=== PATIENT | male | born 1980 | race Caucasian/White ===

== ENCOUNTER 2017-02-03 10:02 | Emergency (ER) | payer OTHER ==
[2017-02-03] MEDS ORDERED: oxyCODONE/Acetamin 5/325 MG* TAB ONE (11:48)
[2017-02-03] MEDS ORDERED: oxyCODONE/Acetamin 5/325 MG* TAB PO ONE ×2 (11:49→11:56)
--- NOTE | 2017-02-03 12:24 | RAD ---
HISTORY: Left testicle pain COMPARISONS: None TECHNIQUE: Multiple transverse and longitudinal ultrasound images were obtained of the scrotum, using grayscale, color Doppler, and spectral Doppler imaging. FINDINGS: RIGHT: RIGHT TESTICLE: The right testicle measures 4.8 x 2.6 x 3.6 cm. The right testicle is homogeneous in echotexture, without testicular parenchymal mass. A punctate calculus is noted without meeting the criteria for testicular microlithiasis.. Normal arterial and venous waveforms are identified within the right testicle on spectral Doppler imaging. RIGHT EPIDIDYMIS: The right epididymis measures 1.7 cm at the head. A 0.4 cm cyst is noted. RIGHT SCROTUM: There is no hydrocele or varicocele. LEFT: LEFT TESTICLE: The left testicle measures 5 x 2.5 x 3.4 cm. The left testicle is homogeneous in echotexture, without testicular parenchymal mass. Normal arterial and venous waveforms are identified within the left testicle on spectral Doppler imaging. LEFT EPIDIDYMIS: The left epididymis measures 2.1 cm at the head. The left epididymis is mildly hyperemic. LEFT SCROTUM: There is no hydrocele or varicocele. OTHER: None IMPRESSION: 1. MILDLY HYPEREMIC LEFT EPIDIDYMIS, SUGGESTIVE OF EPIDIDYMITIS. 2. NO TESTICULAR PARENCHYMAL MASS. 3. NO SONOGRAPHIC FEATURES OF TORSION. PLEASE NOTE THAT PARTIAL OR INTERMITTENT TORSION MAY BE SONOGRAPHICALLY NORMAL.
[2017-02-03 12:40] VITALS: BP 109/78
--- NOTE | 2017-02-03 14:13 | ED ---
I, Charly,Jr, scribed for Barry Marroquin MD on 02/03/17 at 1146 . GI/ HPI - HPI Summary HPI Summary: This 36 y/o male presents to ED for gradually worsening left testicular swelling and pain since 1400 PM yesterday. Negative discharge. Normal BM and urination. Ambulating and sitting down make pain worse. Pt denies any PMHx. Pt is current some day smoker. Plan of care involving US imaging studies is discussed with pt , and he is agreeable. Pain medication is offered, and pt accepts. - History of Current Complaint Chief Complaint: EDUrogenitalProblems Time Seen by Provider: 02/03/17 10:18 Stated Complaint: testicular PAIN Hx Obtained From: Patient Onset/Duration: Started Days Ago, Atraumatic, Still Present Timing: Constant Pain Intensity: 6 Additional Locations for Males: Testicles - left Pain Characteristics: Dull Associated Signs and Symptoms: Negative: Diarrhea, Dysuria - Allergy/Home Medications Allergies/Adverse Reactions: Allergies Allergy/AdvReac Type Severity Reaction Status Date / Time No Known Allergies Allergy Verified 02/03/17 10:33 PMH/Surg Hx/FS Hx/Imm Hx Cardiovascular History: Denies: Hx Myocardial Infarction Infectious Disease History: No Infectious Disease History: Denies: Traveled Outside the [place] in Last 30 Days - Family History Known Family History: Positive: Hypertension - Positive to father - Social History Alcohol Use: Weekly Hx Substance Use: No Substance Use Type: Reports: None Hx Tobacco Use: Yes Smoking Status (MU): Current Some Day Smoker Review of Systems Negative: Fever Gastrointestinal: Other - Normal BM Positive: other - left testicular swelling and pain. Negative: dysuria All Other Systems Reviewed And Are Negative: Yes Physical Exam - Summary Physical Exam Summary: Well-appearing, no pain distress, Well nourished Warm, dry, color reflects adequate perfusion Nml head/face Nml eyes Nml ENT Supple, non-tender CTA, breath sound present RRR ABD NONTENDER : DIMINISHED CREMATIS REFLEX. POSITIVE EPIDIDYMIS TENDERNESS Nml musculoskeletal Nml neuro Nml psychiatric, affect/mood appropriate Triage Information Reviewed: Yes Vital Signs On Initial Exam: Initial Vitals Temp Pulse Resp BP Pulse Ox 98.1 F 72 16 142/90 99 02/03/17 10:15 02/03/17 10:15 02/03/17 10:15 02/03/17 10:15 02/03/17 10:15 Vital Signs Reviewed: Yes - [place] Coma Scale Coma Scale Total: 15 Diagnostics - Vital Signs Vital Signs Temp Pulse Resp BP Pulse Ox 02/03/17 10:23 98.2 F 72 16 142/90 98 02/03/17 10:15 98.1 F 72 16 142/90 99 - Laboratory Lab Statement: Any lab studies that have been ordered have been reviewed, and results considered in the medical decision making process. - Additional Comments Diagnostic Additional Comments: US testicular -- 1. MILDLY HYPEREMIC LEFT EPIDIDYMIS, SUGGESTIVE OF EPIDIDYMITIS. 2. NO TESTICULAR PARENCHYMAL MASS. 3. NO SONOGRAPHIC FEATURES OF TORSION. PLEASE NOTE THAT PARTIAL OR INTERMITTENT TORSION MAY BE SONOGRAPHICALLY NORMAL. GIGU Course/Dx - Course Course Of Treatment: Mr. Martinez presented with a couple days of left testicular pain without D/C. He had a somewhat diminished cremaster reflex and tender epididymis. An U/S showed epididymitis and he was treated with Cipro and pain medication. - Diagnoses Provider Diagnoses: Left epididymitis Discharge - Discharge Plan Condition: Stable Disposition: HOME Prescriptions: Ciprofloxacin TAB* [Cipro Tab*] 500 mg PO BID #28 tab oxyCODONE/Acetamin 5/325 MG* [Percocet 5/325 TAB*] 1 tab PO Q6H PRN #20 tab MDD 4 PRN Reason: Pain Patient Education Materials: Ciprofloxacin (By mouth), Oxycodone/Acetaminophen (By mouth), Epididymitis (ED) Referrals: German Spivey MD [Medical Doctor] - The documentation as recorded by the Charly dennis Soohyun accurately reflects the service I personally performed and the decisions made by me, Barry Marroquin MD.
== END 2017-02-03 12:50 | disposition home or self-care (01) ==
LOC: ED 10:02
DX: N45.1 Epididymitis (principal)
CPT/HCPCS: 76870; 99282; A9270-GY